=== PATIENT | male | born 1950 | race Caucasian/White ===

== ENCOUNTER 2024-08-12 02:31 | Emergency (ER) | payer MEDICARE, OTHER ==
[~2024-08-12] VITALS: Ht 165.1 cm; Wt 70.8 kg
[~2024-08-12 02:31] MED LIST: CEPHALEXIN500 MG PO; CLEOCIN HCL150 MG PO
[2024-08-12 02:35] VITALS: PULSE 71; RESP 15; TEMP 97.8
[2024-08-12] MEDS ORDERED: DIPHENHYDRAMINE25 M2 PO (03:35)
[2024-08-12] MEDS ORDERED: TYLENOL325 MG PO (03:35)
[2024-08-12] MEDS ORDERED: IBUPROFEN200 MG PO (03:35)
[2024-08-12 03:41] VITALS: BP 164/80; PULSE 71; RESP 15; TEMP 97.8; O2SAT 97
== END 2024-08-12 03:43 | disposition home or self-care (01) ==
LOC: FSED 02:43
DX: R09.89 Other specified symptoms and signs involving the circulatory and respiratory systems (principal); J06.9 Acute upper respiratory infection, unspecified; R09.81 Nasal congestion; Z11.52 Encounter for screening for COVID-19
CPT/HCPCS: 0223U; 87400; 99283

== ENCOUNTER 2025-01-13 08:06 | Emergency (ER) | payer MEDICARE, OTHER ==
[~2025-01-13] VITALS: Ht 165.1 cm; Wt 72.4 kg
[~2025-01-13 08:06] MED LIST changes: +DIPHENHYDRAMINE25 M2 PO; +IBUPROFEN200 MG PO; +TYLENOL325 MG PO
[2025-01-13 08:19] VITALS: TEMP 98.5
[2025-01-13] MEDS ORDERED: REPATHA SU140 MG/1 M (09:17)
[2025-01-13] MEDS ORDERED: EFFEXOR XR150 MG PO (09:17)
[2025-01-13] MEDS: ASPIRIN 325 MG TAB PO ONE (09:39)
[2025-01-13 10:21] VITALS: PULSE 70; RESP 18; O2SAT 96
== END 2025-01-13 10:34 | disposition other institution (70) ==
LOC: FSED 08:14
DX: M62.81 Muscle weakness (generalized) (principal); R20.0 Anesthesia of skin; I10 Essential (primary) hypertension; E78.5 Hyperlipidemia, unspecified; F32.A Depression, unspecified; Z85.46 Personal history of malignant neoplasm of prostate
CPT/HCPCS: 36415; 70450; 80053; 80307; 81003; 82948; 84484; 85025; 93005; 99284